=== PATIENT | female | born 1985 | race Caucasian/White ===

== ENCOUNTER 2016-09-15 23:19 | Emergency (ER) | payer OTHER ==
[~2016-09-15] VITALS: Ht 172.7 cm; Wt 87.3 kg
[~2016-09-15 23:19] MED LIST: DIAZEPAM5 MG PO; DILAUDID4 MG PO; NORCO 5/3251 TABLET PO; PROMETHAZINE HC25 M1 PO
[2016-09-15] MEDS ORDERED: ZOLOFT50 MG PO (23:41)
[2016-09-15] MEDS ORDERED: ADDERALL XR (23:42)
[2016-09-15 23:51] LABS: ADD MIUA? YES; BILIRUBIN NEGATIVE; BLOOD NEGATIVE; COLOR YELLOW ((YELLOW)); GLUCOSE (STRIP) NEGATIVE; KETONES NEGATIVE; LEUKOCYTES SMALL; NITRITE NEGATIVE; PROTEIN (STRIP) NEGATIVE; SPECIFIC GRAVITY 1.017 (1.000-1.030); UROBILINOGEN 0.2 MG/DL (0.2-1.0)
[2016-09-16 00:14] LABS: HEMATOCRIT 39.8 % (36.0-46.0); MCH 29.9 PG (29.0-34.0); MCHC 36.7 G/DL (30.0-36.0); MCV 81.4 FL (83-99); MEAN PLAT.VOLUME 9.9 uM^3 (9.5-12.4); PLATELET COUNT 205 K/uL (156-360); RBC DIS.WIDTH-CV 12.9 % (11.8-14.6); RBC DIS.WIDTH-SD 37.1 % (39-53); RED BLOOD COUNT 4.89 M/uL (3.80-5.20); WHITE BLOOD COUNT 10.3 K/uL (4.1-10.2)
[2016-09-16 00:23] LABS: CHLORIDE 107 mEq/L (99-109); POTASSIUM 3.8 mEq/L (3.7-5.4); SODIUM 139 mEq/L (136-147)
[2016-09-16 00:25] LABS: GLUCOSE 101 mg/dL (70-99)
[2016-09-16 00:26] LABS: ANION GAP 8 MEQ/L (2-14)
[2016-09-16 00:27] LABS: TOTAL BILIRUBIN 0.4 mg/dL (0.0-1.0)
[2016-09-16 00:28] LABS: ALKALINE PHOSPHATASE 65 IU/L (3-129)
[2016-09-16 00:29] LABS: GFR ESTIMATE (CALCULATED) > 59 mL/min/
[2016-09-16 00:30] LABS: BACTERIA RARE /HPF; CASTS NONE SEEN /LPF; CRYSTALS PRESENT; EPITHELIAL CELLS RARE /HPF; MUCUS TRACE /LPF; RED BLOOD CELLS 0-5 /HPF (0-5); UCUL ADDED? NO; WHITE BLOOD CELLS 0-5 /HPF (0-5)
[2016-09-16 00:30] LABS: UREA NITROGEN (BUN) 13 mg/dL (9-23)
[2016-09-16 00:31] LABS: AMORPHOUS PHOSPHATE CRYSTALS FEW
[2016-09-16 00:36] LABS: LIPASE 61 U/L (1.0-51.0)
[2016-09-16 00:37] LABS: QUANTITATIVE HCG < 4.0 MIU/ML
[2016-09-16 00:44] LABS: D-DIMER ELISA 0.19 mg/L FEU (< 0.57)
[2016-09-16] MEDS ORDERED: BENTYL20 MG PO (02:16)
[2016-09-16] MEDS ORDERED: OMEPRAZOLE40 M1 PO (02:16)
[2016-09-16] MEDS ORDERED: ZOFRAN ODT4 MG PO (02:16)
[2016-09-16 02:22] VITALS: BP 129/96
== END 2016-09-16 02:29 | disposition home or self-care (01) ==
LOC: EME 23:19 → EXP 23:19
DX: R10.11 Right upper quadrant pain (principal); R00.0 Tachycardia, unspecified; R79.89 Other specified abnormal findings of blood chemistry
CPT/HCPCS: 74177; 80053; 81003; 83690; 84702; 85027; 85379; 93005; 99281; 99285; J1885; J2405; J7040